=== PATIENT | female | born 1955 | race Hispanic/Latino ===

== ENCOUNTER 2019-07-17 08:47 | Outpatient (CLI) | payer OTHER ==
--- NOTE | 2019-07-17 11:29 | CT ---
CT ABDOMEN AND PELVIS WITHOUT IV CONTRAST: HISTORY: Epigastric pain. FINDINGS: Absence of IV Contrast reduces the sensitivity of the exam, particularly for evaluation of solid orga ns. The exam was performed with oral contrast. The lung bases are clear. The patient is post darshan cystectomy. No free air or free fluid is seen in the abdomen or pelvis. There is a 7 mm exophytic cyst arising from the posterior cortex of the left mid kidney. A punctate calculus is seen in the left kidney. No calculi are seen in the right kidney, either ureter, or the urinary bladder. No hydroureteral nephrosis is noted on either side. The small bowel loops are not abnormally dilated. A normal-appearing appendix is present. There are vascular calcifications without evidence of aneurysmal dilatation of the abdominal aorta. Uterus is present. There are mild degenerative changes in the spine. IMPRESSION: 1. Punctate nonobstructing left renal calculus. 2. Tiny left renal cyst. POS: [facility]
== END 2019-07-17 08:48 | disposition home or self-care (01) ==
LOC: SCSCT 08:47
PROVIDERS: ATTEND Internal Medicine
DX: R10.13 Epigastric pain (principal); N20.0 Calculus of kidney; N28.1 Cyst of kidney, acquired
CPT/HCPCS: 74176